=== PATIENT | female | born 1980 | race Caucasian/White ===

== ENCOUNTER 2016-11-28 01:59 | Emergency (ER) | payer MEDICAID, OTHER ==
[~2016-11-28] VITALS: Ht 154.9 cm; Wt 57.0 kg
[~2016-11-28 01:59] MED LIST: ATEN-102 PO; HYDR-2768 PO; LISI40TA PO; ONDA1TAB16 PO; PERC5TAB12 PO
[2016-11-28 02:13] VITALS: BP 151/99; PULSE 104; RESP 16; TEMP 98.4; O2SAT 99
[2016-11-28] MEDS ORDERED: LORA-392 PO (02:18)
[2016-11-28] MEDS ORDERED: SERT25TA83 PO (02:18)
[2016-11-28] MEDS ORDERED: LISI40TA PO (02:18)
[2016-11-28] MEDS ORDERED: ATEN50TA PO (02:18)
[2016-11-28] MEDS ORDERED: AMLO10TA2 PO (02:18)
[2016-11-28] MEDS ORDERED: HYDR25TA5 PO (02:18)
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
[2016-11-28 03:00] LABS: AUTOMATED NEUTROPHIL # 2.7 TH/MM3 (1.8-7.7); BASOPHIL # 0.1 TH/MM3 (0-0.2); BASOPHIL % 0.9 % (0.0-2.0); EOSINOPHIL # 0.2 TH/MM3 (0-0.4); EOSINOPHIL % 2.7 % (0.0-4.0); HEMATOCRIT 37.2 % (35.0-46.0); LYMPH % 53.9 % (9.0-44.0); LYMPHOCYTE # 3.9 TH/MM3 (1.0-4.8); MEAN CELL VOLUME 98.4 FL (80.0-100.0); MEAN CORPUSCULAR HEMOGLOBIN 33.8 PG (27.0-34.0); MEAN CORPUSCULAR HGB CONC 34.4 % (32.0-36.0); MONO % 5.3 % (0.0-8.0); NEUT % 37.2 % (16.0-70.0); PLATELET COUNT 256 TH/MM3 (150-450); RED BLOOD COUNT 3.78 MIL/MM3 (4.00-5.30); RED CELL DISTRIBUTION WIDTH 13.1 % (11.6-17.2); WHITE BLOOD COUNT 7.3 TH/MM3 (4.0-11.0)
[2016-11-28] MEDS ORDERED: ATENOLOL 50 MG TAB PO ONE (03:00)
[2016-11-28] MEDS ORDERED: IBUPROFEN 800 MG TAB PO ONE (03:00)
[2016-11-28 03:05] LABS: HEMO FLAGS AUTO DIFF
[2016-11-28 03:10] LABS: AMPHETAMINE, URINE NEG (NEG); BARBITURATES, URINE NEG (NEG); COCAINE, URINE NEG (NEG)
[2016-11-28 03:11] LABS: ALKALINE PHOSPHATASE 48 U/L (45-117); ALT (GPT) 30 U/L (10-53); TOTAL BILIRUBIN ADULT 0.4 MG/DL (0.2-1.0)
[2016-11-28 03:12] LABS: ANION GAP 7 MEQ/L (5-15); AST (GOT) 27 U/L (15-37); BLOOD UREA NITROGEN 12 MG/DL (7-18); CHLORIDE 110 MEQ/L (98-107); GLOMERULAR FILTRATION RATE 115 ML/MIN (>89); POTASSIUM 4.2 MEQ/L (3.5-5.1); SODIUM (NA) 144 MEQ/L (136-145)
[2016-11-28 03:13] LABS: ACETAMINOPHEN LESS THAN 2.0 MCG/ML (10.0-30.0)
[2016-11-28 03:32] LABS: PLATELET ESTIMATE SMEAR NORMAL (NORMAL); PLATELET MORPHOLOGY NORMAL (NORMAL); SCAN/DIFF AUTO DIFF CONFIRMED
[2016-11-28 03:33] VITALS: BP 113/74; PULSE 104; PULSE 105; RESP 16; O2SAT 99
[2016-11-28 06:28] VITALS: BP 104/55; PULSE 87; RESP 18; O2SAT 99
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
[2016-11-28 13:01] VITALS: BP 105/71; PULSE 91; RESP 18
== END 2016-11-28 13:15 ==
LOC: NEPA 01:59 → NEPJ 13:15
DX: F43.20 Adjustment disorder, unspecified (principal); M25.531 Pain in right wrist; R51 Headache; F41.9 Anxiety disorder, unspecified; Z79.899 Other long term (current) drug therapy; I10 Essential (primary) hypertension
CPT/HCPCS: 80053; 80307; 80320; 80329; 85025; 99285; G0480

== ENCOUNTER 2017-06-11 04:08 | Emergency (ER) | payer MEDICAID, OTHER ==
[~2017-06-11] VITALS: Ht 154.9 cm; Wt 66.9 kg
[~2017-06-11 04:08] MED LIST changes: +AMLO10TA2 PO; -ATEN-102 PO; +ATEN50TA PO; -HYDR-2768 PO; +HYDR25TA5 PO; +LORA-392 PO; -ONDA1TAB16 PO; -PERC5TAB12 PO; +SERT25TA83 PO
[2017-06-11 04:14] VITALS: BP 149/89; PULSE 102; RESP 14; TEMP 97.9; O2SAT 98
[2017-06-11] MEDS ORDERED: ONDANSETRON HCL 4 MG/2 ML VIAL IVP ONE (04:30)
[2017-06-11] MEDS ORDERED: KETOROLAC TROMETHAMINE 30 MG/ML (IVP) VIAL IV PUSH ONE (04:45)
[2017-06-11 04:49] LABS: BLOOD, URINE TRACE (NEG); GLUCOSE,URINE NEG (NEG); KETONE, URINE NEG (NEG)
[2017-06-11 04:50] VITALS: BP 119/97; PULSE 89; RESP 16; O2SAT 100
[2017-06-11 04:50] LABS: AUTOMATED NEUTROPHIL # 6.3 TH/MM3 (1.8-7.7); BASOPHIL # 0.1 TH/MM3 (0-0.2); BASOPHIL % 1.3 % (0.0-2.0); EOSINOPHIL # 0.2 TH/MM3 (0-0.4); EOSINOPHIL % 1.6 % (0.0-4.0); HEMATOCRIT 38.9 % (35.0-46.0); HEMO FLAGS DIFF FINAL; LYMPH % 31.2 % (9.0-44.0); LYMPHOCYTE # 3.3 TH/MM3 (1.0-4.8); MEAN CELL VOLUME 95.9 FL (80.0-100.0); MEAN CORPUSCULAR HEMOGLOBIN 32.2 PG (27.0-34.0); MEAN CORPUSCULAR HGB CONC 33.6 % (32.0-36.0); MONO % 5.6 % (0.0-8.0); NEUT % 60.3 % (16.0-70.0); PLATELET COUNT 329 TH/MM3 (150-450); RED BLOOD COUNT 4.05 MIL/MM3 (4.00-5.30); RED CELL DISTRIBUTION WIDTH 13.4 % (11.6-17.2); WHITE BLOOD COUNT 10.5 TH/MM3 (4.0-11.0)
--- NOTE | 2017-06-11 04:56 | PD ---
HPI Chief Complaint: flank pain Time Seen by Provider: 04:23 Travel History International Travel<30 days: No Contact w/Intl Traveler<30days: No Traveled to known affect area: No History of Present Illness HPI 36 year-old female presents to the emergency department by private transportation for complaint of lower abdominal cramping 2 days with left flank cramping 2 hours. Nausea without vomiting. No fever chills. No dysuria frequency urgency or hematuria. Patient has had some vaginal spotting but states last normal menstrual period was 2 years ago. Patient denies . Patient is status post uterine ablation and tubal ligation. Patient rates discomfort as moderate. PFSH Past Medical History Narrative Medical Anxiety chest pain headaches hypertension breast augmentation tonsillectomy alcohol and opiate use; nursing notes reviewed Blood Disorders: No Anxiety: Yes Cancer: No Cardiovascular Problems: Yes High Cholesterol: No Chest Pain: Yes Diminished Hearing: No Endocrine: No Gastrointestinal Disorders: Yes Genitourinary: No Headaches: Yes Hypertension: Yes ( INDUCED) Immune Disorder: No Musculoskeletal: No Neurologic: Yes Psychiatric: Yes Respiratory: Yes Immunizations Current: No : 3 Para: 2 Miscarriage: 1 Ovarian Cysts: Yes Past Surgical History Oral Surgery: Yes (TONSILECTOMY, POLIPS REMOVED FROM SINUSES) Pacemaker: No Thoracic Surgery: Yes (BREAST AUGMENTATION) Tonsillectomy: Yes Other Surgery: Yes (breast augmentation, NASAL POLPS REMOVED) Social History Alcohol Use: Yes (SOCIALLY) Tobacco Use: No Substance Use: Yes (ALCOHOL, OPIATES) Allergies-Medications (Allergen,Severity, Reaction): Coded Allergies: Codeine (Unverified Adverse Reaction, Intermediate, NAUSEA/VOMITING, ) Uncoded Allergies: KETEK ANTIBIOTIC (Allergy, Severe, HIVES, 12/12/10) KETEX (Allergy, Severe, HIVES, 07/05/12) Reported Meds & Prescriptions Reported Meds & Active Scripts Active Reported Propranolol (Propranolol HCl) 20 Mg Tab 20 Mg PO Q8HR Lexapro (Escitalopram Oxalate) 20 Mg Tab 20 Mg PO DAILY Ativan (Lorazepam) 0.5 Mg Tab 0.5 Mg PO Q6H PRN Review of Systems Except as stated in HPI: all other systems reviewed are Neg General / Constitutional: No: Fever, Chills Eyes: No: Visual changes HENT: No: Headaches, Congestion Cardiovascular: No: Chest Pain or Discomfort Physical Exam Narrative GENERAL: Well-developed well-nourished female in no acute distress respiratory distress SKIN: Warm and dry. HEAD: Normocephalic. EYES: No scleral icterus. No injection or drainage. NECK: Supple, trachea midline. No JVD or lymphadenopathy. CARDIOVASCULAR: Regular rate and rhythm without murmurs, gallops, or rubs. RESPIRATORY: Breath sounds equal bilaterally. No accessory muscle use. GASTROINTESTINAL: Abdomen soft, left lower quadrant tenderness, nondistended. MUSCULOSKELETAL: No cyanosis, or edema. BACK: Nontender without obvious deformity. Left CVA tenderness. Data Data Last Documented VS Vital Signs Date Time Temp Pulse Resp B/P Pulse Ox O2 Delivery O2 Flow Rate FiO2 06/11/17 05:49 82 16 145/88 100 Room Air 06/11/17 04:14 97.9 Orders Complete Blood Count With Diff (06/11/17 04:23) Basic Metabolic Panel (Bmp) (06/11/17 04:23) Urinalysis - C+S If Indicated (06/11/17 04:23) Ed Urine Pregnancytest Poc (06/11/17 04:23) Ecg Monitoring (06/11/17 04:23) Iv Access Insert/Monitor (06/11/17 04:23) Ondansetron Inj (Zofran Inj) (06/11/17 04:30) Sodium Chloride 0.9% Flush (Ns Flush) (06/11/17 04:30) Ct Abd/Pel W/O Iv Contrast (06/11/17 ) Ketorolac Inj (Toradol Inj) (06/11/17 04:45) Urine Culture (06/11/17 04:40) Ciprofloxacin (Cipro) (06/11/17 05:30) Morphine Inj (Morphine Inj) (06/11/17 06:00) Labs Laboratory Tests Test 06/11/17 04:40 White Blood Count 10.5 TH/MM3 Red Blood Count 4.05 MIL/MM3 Hemoglobin 13.1 GM/DL Hematocrit 38.9 % Mean Corpuscular Volume 95.9 FL Mean Corpuscular Hemoglobin 32.2 PG Mean Corpuscular Hemoglobin 33.6 % Concent Red Cell Distribution Width 13.4 % Platelet Count 329 TH/MM3 Mean Platelet Volume 8.0 FL Neutrophils (%) (Auto) 60.3 % Lymphocytes (%) (Auto) 31.2 % Monocytes (%) (Auto) 5.6 % Eosinophils (%) (Auto) 1.6 % Basophils (%) (Auto) 1.3 % Neutrophils # (Auto) 6.3 TH/MM3 Lymphocytes # (Auto) 3.3 TH/MM3 Monocytes # (Auto) 0.6 TH/MM3 Eosinophils # (Auto) 0.2 TH/MM3 Basophils # (Auto) 0.1 TH/MM3 CBC Comment DIFF FINAL Differential Comment Urine Collection Type Urine Color YELLOW Urine Turbidity SLIGHT Urine pH 6.0 Urine Specific [place] 1.020 Urine Protein NEG mg/dL Urine Glucose (UA) NEG mg/dL Urine Ketones NEG mg/dL Urine Occult Blood TRACE Urine Nitrite POS Urine Bilirubin NEG Urine Leukocyte Esterase TRACE Urine RBC 0-3 /hpf Urine WBC 6-8 /hpf Urine Squamous Epithelial 0-5 /hpf Cells Urine Bacteria MANY /hpf Microscopic Urinalysis Comment CULTURE INDICATED Urine Collection Time Sodium Level 138 MEQ/L Potassium Level 4.0 MEQ/L Chloride Level 105 MEQ/L Carbon Dioxide Level 28.5 MEQ/L Anion Gap 5 MEQ/L Blood Urea Nitrogen 16 MG/DL Creatinine 0.75 MG/DL Estimat Glomerular Filtration 87 ML/MIN Rate Random Glucose 98 MG/DL Calcium Level 8.8 MG/DL [facility] Medical Decision Making Medical Screen Exam Complete: Yes Emergency Medical Condition: Yes Medical Record Reviewed: Yes Interpretation(s) CBC & BMP Diagram 06/11/17 04:40 Vital Signs Date Time Temp Pulse Resp B/P Pulse Ox O2 Delivery O2 Flow Rate FiO2 06/11/17 04:55 16 06/11/17 04:50 89 16 119/97 100 06/11/17 04:14 97.9 102 14 149/89 98 Urinalysis abnormal positive nitrites positive leukocyte Estrace positive white blood cells positive many bacteria culture indicated POC hcg: negative CT abdomen and pelvis without contrast renal protocol; per reading radiologist Dr. Carson "no evidence of acute abdominal or pelvic process no masses identified gallbladder and pancreas are unremarkable no ductal dilatation adrenal glands are unremarkable no hydronephrosis or mass affect on a radiographic imaging of pelvis no free fluid no hernia or lymphadenopathy appendix is identified and normal" Differential Diagnosis flank pain, uti, musculoskeletal pain,pyelonephritis, , renal colic, raptured Narrative Course IV access obtained specimens collected and sent for resulting patient administered Zofran and after negative hCG Toradol 30 mg IV good pain relief after toradol; ua is abnormal c/w uti ---therefore patient given first dose of antibiotics Diagnosis Primary Impression: UTI (urinary tract infection) Qualified Code: N30.00 - Acute cystitis without hematuria Referrals: Primary Care Physician call for appointment Patient Instructions: Narcotic given in the ED, General Instructions Additional Instructions: Increase fluid hydration Complete course of antibiotic as prescribed No swimming 7 days Increase fluid hydration May use as tolerated acetaminophen/Tylenol every 4 hours for fever 100.4F or greater and/or ibuprofen/Motrin/Advil every 6-8 hours as needed for fever 100.4 F or greater or for pain associated with inflammation PRIMARY care provider call office on Monday to schedule follow-up appointment Return to the emergency department for any concerns or change condition Med/Other Pt SpecificInfo: Prescription(s) given Scripts Phenazopyridine (Pyridium)100 Mg [id number] Mg PO Q8H PRN (DYSURIA) #6 TAB Ref 0 Prov:Alisia Asher MD 06/11/17 Sulfamethoxazole-Trimethoprim (Bactrim DS)800-160 Mg Tab1 Tab PO BID #14 TAB Ref 0 Prov:Alisia Asher MD 06/11/17 Disposition: 01 DISCHARGE HOME Condition: Stable Alisia Asher MD Jun 11, 2017 04:56
[2017-06-11 04:57] LABS: BACTERIA, URINE MANY /hpf; NITRITE,URINE POS (NEG); RBC, URINE 0-3 /hpf (0-3); SQUAMOUS EPITHELIAL CELL URINE 0-5 /hpf (0-5); URINE COLOR YELLOW (YELLW/STRAW)
[2017-06-11 04:58] LABS: COMMENT (UR) CULTURE INDICATED; CULTURE IF INDICATED CULTURE INDICATED
[2017-06-11 04:59] LABS: BICARBONATE 28.5 MEQ/L (21.0-32.0)
[2017-06-11] MEDS ORDERED: PROP20TA3 PO (05:01)
[2017-06-11] MEDS ORDERED: LEXA20TA PO (05:01)
[2017-06-11] MEDS: SODIUM CHLORIDE 0.9% FLUSH 10 ML FLUSH IVF PRN ×2 (05:05→05:46)
[2017-06-11] MEDS ORDERED: CIPROFLOXACIN 500 MG TAB PO ONE (05:30)
[2017-06-11 05:49] VITALS: BP 145/88; PULSE 82; RESP 16; O2SAT 100
--- NOTE | 2017-06-11 05:53 | RADRPT ---
EXAM DATE/TIME: 06/11/2017 04:34 [facility] COMPARISON: No previous studies available for comparison. INDICATIONS : Left flank pain and cramping for 2 days ORAL CONTRAST: No oral contrast ingested. RADIATION DOSE: 9.70 CTDIvol (mGy) MEDICAL HISTORY : Hypertension. SURGICAL HISTORY : section. breast augmentation ENCOUNTER: Initial ACUITY: 2 days PAIN SCALE: 9/10 LOCATION: Left flank TECHNIQUE: Volumetric scanning of the abdomen and pelvis was performed. Using automated exposure control and ad justment of the mA and/or kV according to patient size, radiation dose was kept as low as reasonably achievable to obtain optimal diagnostic quality images. DICOM format image data is available electro nically for review and comparison. FINDINGS: Examination of the lung bases demonstrates no abnormality. No pleural fluid is identified. No pulmona ry nodules are present. The visualized portion of the liver and spleen are normal. The gallbladder an d pancreas are unremarkable. No intrahepatic or extrahepatic ductal dilatation is seen. The adrenal g lands are unremarkable. The adrenal glands and kidneys appear normal bilaterally. No hydronephrosis o r mass lesions are identified. Examination of the pelvis demonstrates no evidence of free fluid or pelvic mass. No abnormally enlarg ed inguinal or retroperitoneal lymph nodes are present. The bladder is unremarkable. Examination of t he right lower quadrant demonstrates no abnormality. The appendix is identified and appears normal. CONCLUSION: 1. No evidence of acute abdominal or pelvic process. No masses are identified. Ubaldo Carson MD on June 11, 2017 at 5:49 Board Certified Radiologist. This report was verified electronically.
[2017-06-11] MEDS ORDERED: BACT800T5 PO (05:58)
[2017-06-11] MEDS ORDERED: PHEN0.4T PO (05:58)
[2017-06-11] MEDS ORDERED: MORPHINE SULFATE 8 MG/ML INJ IV PUSH ONE (06:00)
[2017-06-11 06:06] VITALS: BP 162/95
[2017-06-11 06:07] VITALS: RESP 16
== END 2017-06-11 06:37 | disposition home or self-care (01) ==
LOC: PHED 04:08
DX: N30.00 Acute cystitis without hematuria (principal); B96.20 Unspecified Escherichia coli [E. coli] as the cause of diseases classified elsewhere
CPT/HCPCS: 74176; 80048; 81001; 84703; 85025; 87077; 87086; 87186; 96374; 96375; 99285; J1885; J2270; J2405

== ENCOUNTER 2017-08-21 19:09 | Emergency (ER) | payer SELFPAY ==
[~2017-08-21] VITALS: Ht 154.9 cm; Wt 62.9 kg
[~2017-08-21 19:09] MED LIST changes: -AMLO10TA2 PO; -ATEN50TA PO; +BACT800T5 PO; -HYDR25TA5 PO; +LEXA20TA PO; -LISI40TA PO; +PHEN0.4T PO; +PROP20TA3 PO; -SERT25TA83 PO
[2017-08-21 19:18] VITALS: BP 132/100; PULSE 100; RESP 20; TEMP 98.3; O2SAT 97
--- NOTE | 2017-08-21 19:59 | PD ---
HPI Chief Complaint: Abdominal Pain Time Seen by Provider: 19:30 Travel History International Travel<30 days: No Contact w/Intl Traveler<30days: No History of Present Illness HPI Patient is a 36-year-old female presents emergency department for evaluation of left lower quadrant abdominal pain for the past few hours. Patient states is severe associated with diarrhea for the past day or 2, she also stated she been throwing up green bile. Denies any fevers. Denies any radiation of the pain. Patient states she's not had this pain in the past. PFSH Past Medical History Blood Disorders: No Anxiety: Yes Cancer: No Cardiovascular Problems: Yes High Cholesterol: No Chest Pain: Yes Diminished Hearing: No Endocrine: No Gastrointestinal Disorders: Yes Genitourinary: No Headaches: Yes Hypertension: Yes ( INDUCED) Immune Disorder: No Musculoskeletal: No Neurologic: Yes Psychiatric: Yes Respiratory: Yes Immunizations Current: No ?: Not LMP: "TUBES TIED, HAD ABLATION, NO PERIODS" STATED 08/21/17 : 3 Para: 2 Miscarriage: 1 Ovarian Cysts: Yes Past Surgical History Oral Surgery: Yes (TONSILECTOMY, POLIPS REMOVED FROM SINUSES) Pacemaker: No Thoracic Surgery: Yes (BREAST AUGMENTATION) Tonsillectomy: Yes Other Surgery: Yes (breast augmentation, NASAL POLPS REMOVED) Social History Alcohol Use: No Tobacco Use: No Substance Use: Yes (ALCOHOL, OPIATES) Allergies-Medications (Allergen,Severity, Reaction): Coded Allergies: codeine (Unverified Adverse Reaction, Intermediate, NAUSEA/VOMITING, 08/21) Uncoded Allergies: KETEK ANTIBIOTIC (Allergy, Severe, HIVES, 12/12/10) KETEX (Allergy, Severe, HIVES, 07/05/12) Reported Meds & Prescriptions Reported Meds & Active Scripts Active Zofran (Ondansetron HCl) 4 Mg Tab 4 Mg PO Q6HR PRN Bentyl (Dicyclomine HCl) 10 Mg Cap 10 Mg PO TID Reported Propranolol (Propranolol HCl) 20 Mg Tab 20 Mg PO Q6HR Lexapro (Escitalopram Oxalate) 20 Mg Tab 40 Mg PO DAILY Ativan (Lorazepam) 0.5 Mg Tab 0.5 Mg PO Q6H PRN Review of Systems Except as stated in HPI: all other systems reviewed are Neg Physical Exam Narrative GENERAL: Well-developed well-nourished, subtle in the position, smells strongly of alcohol. SKIN: Focused skin assessment warm/dry. HEAD: Atraumatic. Normocephalic. EYES: Pupils equal and round. No scleral icterus. No injection or drainage. ENT: No nasal bleeding or discharge. Mucous membranes pink and moist. NECK: Trachea midline. No JVD. CARDIOVASCULAR: Regular rate and rhythm. No murmur appreciated. RESPIRATORY: No accessory muscle use. Clear to auscultation. Breath sounds equal bilaterally. GASTROINTESTINAL: Abdomen soft, moderately tender in the left lower quadrant, nondistended. Hepatic and splenic margins not palpable. No rebound no percussive tenderness. GENITOURINARY: Exam performed with female nurse school operations manager present all times. No discharge no lesion, no cervical motion tenderness. There is minimal tenderness in the left adnexa weren't palpated. MUSCULOSKELETAL: No obvious deformities. No clubbing. No cyanosis. No edema. NEUROLOGICAL: Awake and alert. No obvious cranial nerve deficits. Motor grossly within normal limits. Normal speech. PSYCHIATRIC: Appropriate mood and affect; insight and judgment normal. Data Data Last Documented VS Vital Signs Date Time Temp Pulse Resp B/P (MAP) Pulse Ox O2 Delivery O2 Flow Rate FiO2 08/21/17 23:27 08/21/17 23:00 79 16 98 Room Air 08/21/17 19:18 98.3 Orders Orders Urinalysis - C+S If Indicated (08/21/17 19:31) Ed Urine Pregnancytest Poc (08/21/17 19:31) Complete Blood Count With Diff (08/21/17 19:52) Comprehensive Metabolic Panel (08/21/17 19:52) Lipase (08/21/17 19:52) Prothrombin Time / Inr (Pt) (08/21/17 19:52) Act Partial Throm Time (Ptt) (08/21/17 19:52) Ct Abd/Pel W Iv Contrast(Rout) (08/21/17 19:52) Iv Access Insert/Monitor (08/21/17 19:52) Ecg Monitoring (08/21/17 19:52) Oximetry (08/21/17 19:52) Sodium Chloride 0.9% Flush (Ns Flush) (08/21/17 20:00) Ketorolac Inj (Toradol Inj) (08/21/17 20:00) Alcohol (Ethanol) (08/21/17 19:52) Sodium Chlor 0.9% 1000 Ml Inj (Ns 1000 M (08/21/17 20:00) Ondansetron Inj (Zofran Inj) (08/21/17 20:00) Beta Hcg (Quant/Titer) (08/21/17 19:52) Urine Culture (08/21/17 20:05) Iohexol 350 Inj (Omnipaque 350 Inj) (08/21/17 20:30) Morphine Inj (Morphine Inj) (08/21/17 20:45) Wet Prep Profile (08/21/17 20:56) Gc And Chlamydia Pcr (08/21/17 20:56) Us Pelvis Comp W Dop Transvag (08/21/17 ) Ed Discharge Order (08/21/17 23:11) Labs Laboratory Tests Test 08/21/17 20:00 08/21/17 20:05 08/21/17 23:05 White Blood Count 7.2 TH/MM3 Red Blood Count 4.58 MIL/MM3 Hemoglobin 14.3 GM/DL Hematocrit 43.5 % Mean Corpuscular Volume 94.9 FL Mean Corpuscular Hemoglobin 31.2 PG Mean Corpuscular Hemoglobin Concent 32.8 % Red Cell Distribution Width 14.3 % Platelet Count 288 TH/MM3 Mean Platelet Volume 7.4 FL Neutrophils (%) (Auto) 43.3 % Lymphocytes (%) (Auto) 46.8 % Monocytes (%) (Auto) 7.7 % Eosinophils (%) (Auto) 1.5 % Basophils (%) (Auto) 0.7 % Neutrophils # (Auto) 3.1 TH/MM3 Lymphocytes # (Auto) 3.3 TH/MM3 Monocytes # (Auto) 0.6 TH/MM3 Eosinophils # (Auto) 0.1 TH/MM3 Basophils # (Auto) 0.1 TH/MM3 CBC Comment DIFF FINAL Differential Comment Prothrombin Time 11.5 SEC Prothromb Time International Ratio 1.0 RATIO Activated Partial Thromboplast Time 28.7 SEC Blood Urea Nitrogen 19 MG/DL Creatinine 0.65 MG/DL Random Glucose 90 MG/DL Total Protein 7.7 GM/DL Albumin 3.7 GM/DL Calcium Level 8.1 MG/DL Alkaline Phosphatase 53 U/L Aspartate Amino Transf (AST/SGOT) 30 U/L Alanine Aminotransferase (ALT/SGPT) 22 U/L Total Bilirubin 1.2 MG/DL Sodium Level 141 MEQ/L Potassium Level 3.6 MEQ/L Chloride Level 103 MEQ/L Carbon Dioxide Level 27.3 MEQ/L Anion Gap 11 MEQ/L Estimat Glomerular Filtration Rate 103 ML/MIN Lipase 411 U/L Human Chorionic Gonadotropin, Quant LESS THAN 1 MIU/ML Ethyl Alcohol Level 392 MG/DL Urine Color STRAW Urine Turbidity CLEAR Urine pH 7.0 Urine Specific [place] 1.005 Urine Protein NEG mg/dL Urine Glucose (UA) NEG mg/dL Urine Ketones NEG mg/dL Urine Occult Blood NEG Urine Nitrite NEG Urine Bilirubin NEG Urine Leukocyte Esterase NEG Urine WBC 0-2 /hpf Urine Squamous Epithelial Cells 0-5 /hpf Urine Bacteria MOD /hpf Microscopic Urinalysis Comment CULTURE INDICATED Clue Cells (Wet Prep) NONE SEEN Vaginal Trichomonas (Wet Prep) NONE SEEN Vaginal Yeast (Wet Prep) NONE SEEN MDM Medical Decision Making Medical Screen Exam Complete: Yes Emergency Medical Condition: Yes Differential Diagnosis Gastritis, gastroenteritis, diverticulitis, torsion, ovarian cysts, alcohol intoxication. Narrative Course Patient roomed emergency department, CAT scan of her abdomen as well as ultrasound of her pelvis and basic labs are reassuring other than alcohol level of 392. The patient denied alcohol initially in front of her father but during questioning alone she states she had one shot tonight. She verbally consented for me to discuss results with her father, I discussed them with him and recommended that she follow up with a bellows charger assembler for considered a colonoscopy and a primary care physician. Discussed the alcohol level with him and he states he is a recovering alcoholic but he didn't think that she had time to drink that much today. They both verbalized understanding and agreement. Father is clinically sober and is agreed to take the patient home. She ambulates from the emergency department with a balanced gait. Diagnosis Primary Impression: Abdominal pain Qualified Codes: R10.32 - Left lower quadrant pain Additional Impression: Alcohol intoxication Referrals: Kaushik Hammer MD Med/Other Pt SpecificInfo: Prescription(s) given Scripts Ondansetron (Zofran) 4 Mg Tab 4 MG PO Q6HR Y for NAUSEA OR VOMITING, #20 TAB 0 Refills Prov: Terrell De León MD 08/21/17 Dicyclomine (Bentyl) 10 Mg Cap 10 MG PO TID for Bowel Management, #20 CAP 0 Refills Prov: Terrell De León MD 08/21/17 Disposition: 01 DISCHARGE HOME Condition: Stable Terrell De León MD Aug 21, 2017 19:59
[2017-08-21] MEDS ORDERED: SODIUM CHLORIDE 0.9% FLUSH 10 ML FLUSH IV FLUSH PRN (20:00)
[2017-08-21] MEDS ORDERED: ONDANSETRON HCL 4 MG/2 ML VIAL IV PUSH ONE (20:00)
[2017-08-21] MEDS ORDERED: KETOROLAC TROMETHAMINE 30 MG/ML (IVP) VIAL IVP ONE (20:00)
[2017-08-21] MEDS ORDERED: SODIUM CHLOR 0.9% 1000 ML INJ 1,000 ML IV ONE (20:00)
[2017-08-21 20:17] LABS: AUTOMATED NEUTROPHIL # 3.1 TH/MM3 (1.8-7.7); BASOPHIL # 0.1 TH/MM3 (0-0.2); BASOPHIL % 0.7 % (0.0-2.0); EOSINOPHIL # 0.1 TH/MM3 (0-0.4); EOSINOPHIL % 1.5 % (0.0-4.0); HEMATOCRIT 43.5 % (35.0-46.0); HEMO FLAGS DIFF FINAL; LYMPH % 46.8 % (9.0-44.0); LYMPHOCYTE # 3.3 TH/MM3 (1.0-4.8); MEAN CELL VOLUME 94.9 FL (80.0-100.0); MEAN CORPUSCULAR HEMOGLOBIN 31.2 PG (27.0-34.0); MEAN CORPUSCULAR HGB CONC 32.8 % (32.0-36.0); MONO % 7.7 % (0.0-8.0); NEUT % 43.3 % (16.0-70.0); PLATELET COUNT 288 TH/MM3 (150-450); RED BLOOD COUNT 4.58 MIL/MM3 (4.00-5.30); RED CELL DISTRIBUTION WIDTH 14.3 % (11.6-17.2); WHITE BLOOD COUNT 7.2 TH/MM3 (4.0-11.0)
[2017-08-21 20:19] LABS: BLOOD, URINE NEG (NEG); GLUCOSE,URINE NEG (NEG); KETONE, URINE NEG (NEG); NITRITE,URINE NEG (NEG)
[2017-08-21 20:25] LABS: URINE COLOR STRAW (YELLW/STRAW); WBC, URINE 0-2 /hpf (0-5)
[2017-08-21 20:26] LABS: BACTERIA, URINE MOD /hpf; COMMENT (UR) CULTURE INDICATED; CULTURE IF INDICATED CULTURE INDICATED; SQUAMOUS EPITHELIAL CELL URINE 0-5 /hpf (0-5)
[2017-08-21] MEDS ORDERED: IOHEXOL 350 MG/ML 10 ML VIAL (for RAD DIAG) IVCONTRAST ONE (20:30)
[2017-08-21 20:31] LABS: CHLORIDE 103 MEQ/L (98-107); POTASSIUM 3.6 MEQ/L (3.5-5.1); SODIUM (NA) 141 MEQ/L (136-145)
[2017-08-21 20:35] LABS: ANION GAP 11 MEQ/L (5-15); BICARBONATE 27.3 MEQ/L (21.0-32.0); BLOOD UREA NITROGEN 19 MG/DL (7-18)
[2017-08-21 20:36] LABS: APTT (PATIENT) 28.7 SEC (24.3-30.1); PROTHROMBIN TIME - PATIENT 11.5 SEC (9.8-11.6)
[2017-08-21 20:37] LABS: ALT (GPT) 22 U/L (10-53)
[2017-08-21 20:38] LABS: AST (GOT) 30 U/L (15-37); GLOMERULAR FILTRATION RATE 103 ML/MIN (>89)
[2017-08-21 20:39] LABS: TOTAL BILIRUBIN ADULT 1.2 MG/DL (0.2-1.0)
[2017-08-21 20:40] LABS: ALKALINE PHOSPHATASE 53 U/L (45-117)
[2017-08-21 20:43] LABS: BETA HCG QUANT LESS THAN 1 MIU/ML (0-5)
[2017-08-21] MEDS ORDERED: MORPHINE SULFATE 8 MG/ML INJ IV PUSH ONE (20:45)
[2017-08-21 20:47] LABS: ALCOHOL 392 MG/DL (0-5)
--- NOTE | 2017-08-21 20:49 | RADRPT ---
EXAM DATE/TIME: 08/21/2017 20:14 [facility] COMPARISON: CT ABDOMEN & PELVIS W CONTRAST, June 10, 2016, 12:11. CT ABDOMEN & PELVIS W/O CONTRAST, June 11, 2017, 4:34. INDICATIONS : Left lower quadrant pain. Nausea. IV CONTRAST: 100 cc Omnipaque 350 (iohexol) IV ORAL CONTRAST: No oral contrast ingested. RADIATION DOSE: 6.06 CTDIvol (mGy) MEDICAL HISTORY : None SURGICAL HISTORY : Tubal ligation. section. ENCOUNTER: Initial ACUITY: 1 day PAIN SCALE: 10/10 LOCATION: Left lower quadrant TECHNIQUE: Volumetric scanning of the abdomen and pelvis was performed. Using automated exposure control and ad justment of the mA and/or kV according to patient size, radiation dose was kept as low as reasonably achievable to obtain optimal diagnostic quality images. DICOM format image data is available electro nically for review and comparison. FINDINGS: LOWER LUNGS: The visualized lower lungs are clear. LIVER: Homogeneous density with 2 small hypodense lesions in the right lobe liver towards the dome represent ing hemangioma or cyst long-term stable. There is no dilation of the biliary tree. No calcified gal lstones. Gallbladder seen as a luminal structure without wall thickening or stones. SPLEEN: Normal size without lesion. PANCREAS: Within normal limits. KIDNEYS: Normal in size and shape. There is no mass, stone or hydronephrosis. ADRENAL GLANDS: Within normal limits. VASCULAR: There is no aortic aneurysm. BOWEL/MESENTERY: The stomach, small bowel, and colon demonstrate no acute abnormality. There is no free intraperitone al air or fluid. ABDOMINAL WALL: Within normal limits. RETROPERITONEUM: There is no lymphadenopathy. BLADDER: No wall thickening or mass. REPRODUCTIVE: Within normal limits. INGUINAL: There is no lymphadenopathy or hernia. MUSCULOSKELETAL: Within normal limits for patient age. CONCLUSION: No acute disease. 2 small low density lesions monitor stable in the right lobe liver towards the dom e representing cysts or hemangioma. Otherwise negative. Viral Dixon MD on August 21, 2017 at 20:40 Board Certified Radiologist. This report was verified electronically.
[2017-08-21 20:50] VITALS: BP 111/76; PULSE 84; RESP 16; O2SAT 95
--- NOTE | 2017-08-21 22:52 | RADRPT ---
EXAM DATE/TIME: 08/21/2017 21:37 [facility] COMPARISON: US PELVIS,COMP,W DOPPLER, July 22, 2012, 18:19. CT ABDOMEN & PELVIS W CONTRAST, August 21 7, 20:14. INDICATIONS : Pelvic pain. MEDICAL HISTORY : Hypertension. Chest pain. Dyspnea. Ovarian cysts. Anxiety. Substance use. SURGICAL HISTORY : Tonsillectomy. Polyps removed from sinus. Breast augmentation. Uterine ablation. ENCOUNTER: Initial ACUITY: 1 day PAIN SCORE: 8/10 LOCATION: Bilateral pelvis MEASUREMENTS: UTERUS: 7.2 x 4.5 x 4.0 cm ENDOMETRIAL STRIPE: 2 mm RIGHT OVARY: 2.4 x 2.3 x 3.3 cm LEFT OVARY: 3.1 x 2.1 x 1.8 cm FINDINGS: UTERUS: The myometrium has homogeneous echotexture without mass. Small nabothian cysts in the cervix RIGHT OVARY: Ovary contains no mass or significant cystic lesion. Normal vascularity LEFT OVARY: Ovary contains no mass or significant cystic lesion. Normal vascularity. MISCELLANEOUS: No free fluid. CONCLUSION: Normal examination. There are small nabothian cysts in the cervix Viral Dixon MD on August 21, 2017 at 22:47 Board Certified Radiologist. This report was verified electronically.
[2017-08-21 23:00] VITALS: BP 141/95; PULSE 79; RESP 16; O2SAT 98
[2017-08-21] MEDS ORDERED: ZOFR4TAB PO (23:11)
[2017-08-21] MEDS ORDERED: DICY10 PO (23:11)
[2017-08-22 12:50] LABS: CHLAMYDIA PCR NOT DETECTED (NOT DETECT); NEISSERIA PCR NOT DETECTED (NOT DETECT)
== END 2017-08-21 23:31 | disposition home or self-care (01) ==
LOC: PHED 19:09
DX: R10.32 Left lower quadrant pain (principal); R10.2 Pelvic and perineal pain; F10.229 Alcohol dependence with intoxication, unspecified; N39.0 Urinary tract infection, site not specified; B96.20 Unspecified Escherichia coli [E. coli] as the cause of diseases classified elsewhere; F41.9 Anxiety disorder, unspecified; Y90.8 Blood alcohol level of 240 mg/100 ml or more; Z79.899 Other long term (current) drug therapy
CPT/HCPCS: 74177; 76830; 76856; 80053; 80307; 81001; 83690; 84702; 85025; 85610; 85730; 87077; 87086; 87186; 87210; 87491; 87591; 93975; 96361; 96374; 96375; 99285; J1885; J2270; J2405; J7030; Q9967

== ENCOUNTER 2017-08-24 18:22 | Emergency (ER) | payer SELFPAY ==
[~2017-08-24] VITALS: Ht 167.6 cm; Wt 89.0 kg
[~2017-08-24 18:22] MED LIST changes: -BACT800T5 PO; +DICY10 PO; -PHEN0.4T PO; +ZOFR4TAB PO
[2017-08-24 18:33] VITALS: BP 115/77; PULSE 92; RESP 18; TEMP 97.8; O2SAT 98
[2017-08-24 18:45] VITALS: RESP 18; O2SAT 99
[2017-08-24] MEDS ORDERED: SODIUM CHLORIDE 0.9% FLUSH 10 ML FLUSH IVF PRN (18:45)
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
[2017-08-24 19:23] LABS: AUTOMATED NEUTROPHIL # 3.1 TH/MM3 (1.8-7.7); BASOPHIL % 0.6 % (0.0-2.0); EOSINOPHIL % 0.5 % (0.0-4.0); HEMATOCRIT 44.1 % (35.0-46.0); HEMO FLAGS DIFF FINAL; LYMPHOCYTE # 3.8 TH/MM3 (1.0-4.8); MEAN CELL VOLUME 96.5 FL (80.0-100.0); MEAN CORPUSCULAR HEMOGLOBIN 32.7 PG (27.0-34.0); MEAN CORPUSCULAR HGB CONC 33.9 % (32.0-36.0); MONO % 5.9 % (0.0-8.0); PLATELET COUNT 257 TH/MM3 (150-450); RED BLOOD COUNT 4.57 MIL/MM3 (4.00-5.30); RED CELL DISTRIBUTION WIDTH 14.3 % (11.6-17.2); WHITE BLOOD COUNT 7.4 TH/MM3 (4.0-11.0)
[2017-08-24 19:39] LABS: ALT (GPT) 48 U/L (10-53)
[2017-08-24 19:41] LABS: ANION GAP 9 MEQ/L (5-15); AST (GOT) 128 U/L (15-37); BICARBONATE 24.2 MEQ/L (21.0-32.0); BLOOD UREA NITROGEN 22 MG/DL (7-18); CHLORIDE 104 MEQ/L (98-107); GLOMERULAR FILTRATION RATE 81 ML/MIN (>89); POTASSIUM 3.4 MEQ/L (3.5-5.1); SODIUM (NA) 137 MEQ/L (136-145)
[2017-08-24 19:43] LABS: ALKALINE PHOSPHATASE 58 U/L (45-117); TOTAL BILIRUBIN ADULT 1.7 MG/DL (0.2-1.0)
[2017-08-24 19:45] LABS: ALCOHOL 459 MG/DL (0-5)
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
[2017-08-24 21:09] LABS: BLOOD, URINE NEG (NEG); GLUCOSE,URINE NEG (NEG); KETONE, URINE NEG (NEG); NITRITE,URINE NEG (NEG); SQUAMOUS EPITHELIAL CELL URINE <1 /hpf (0-5); URINE COLOR LIGHT-YELLOW (YELLW/STRAW)
[2017-08-24 21:10] LABS: COMMENT (UR) CATH-CULT NOT IND; CULTURE IF INDICATED CATH CULTURE NOT IND
[2017-08-24] MEDS ORDERED: SODIUM CHLOR 0.9% 1000 ML INJ 1,000 ML IV ONE (21:30)
[2017-08-24] MEDS ORDERED: ONDANSETRON HCL 4 MG/2 ML VIAL IV PUSH ONE (21:30)
[2017-08-25] VITALS: BP 120/66; PULSE 83; RESP 16; O2SAT 99
[2017-08-25] MEDS ORDERED: ONDANSETRON HCL 4 MG/2 ML VIAL IV PUSH ONE
[2017-08-25 07:05] VITALS: BP 130/77; PULSE 89; RESP 16; TEMP 97.8; O2SAT 98; O2SAT 99
[2017-08-25 10:00] VITALS: BP 124/77; TEMP 97.8
== END 2017-08-25 10:00 | disposition home or self-care (01) ==
LOC: NEPE 18:22 → NEPD 08-25 10:00
DX: F10.920 Alcohol use, unspecified with intoxication, uncomplicated (principal); V89.2XXA Person injured in unspecified motor-vehicle accident, traffic, initial encounter; Y90.8 Blood alcohol level of 240 mg/100 ml or more; Z79.899 Other long term (current) drug therapy
CPT/HCPCS: 70450; 72125; 80053; 80307; 81001; 84703; 85025; 96361; 96374; 96375; 99285; J2405; J7030